=== PATIENT | female | born 1970 | race Caucasian/White ===

== ENCOUNTER → 2017-04-06 | Outpatient (CLI) | payer OTHER ==
[~2017-04-06] MED LIST: ACETAMINOPHEN325 MG PO; ALBUTEROL17 GM INH; AMOXICILLIN PO; ATIVAN PO; BACTRIM DS TABL1 TA1 PO; CALCIUM 500 +1 EAC5 PO; CIPRO PO; FLAGYL PO; FLEXERIL10 MG PO; HYDROCODON-ACE1 EAC9 PO; KLONOPIN PO; KLONOPIN1 MG PO; LORTAB 10-5001 EACH PO; LORTAB 5/500 TA1 TA1 PO; LORTAB 7.5-5001 TAB PO; MEDROL DOSEPAK4 MG PO; MEDROL PO; NO MEDICATIONS; NORFLEX100 M1 PO; PHENERGAN25 M1 DOB; PHENERGAN25 MG PO; PREDNISONE PO; ROBAXIN 750750 M1 DOB; SEROQUEL PO; SKELAXIN PO; SYNTHROID0.05 MG PO; TUMS500 MG; TUSSIONEX PENN473 ML PO; TYLOX1 CAP 5/50 PO; ULTRAM PO; VICODIN PO; Z-CLINZ 10 PAC1 EA PO; ZANAFLEX; ZANAFLEX PO; ZANTAC150 MG PO
--- NOTE | ~2017-04-06 | US128 ---
[id number] [facility] [address] [place], [place] [address] [id number] O MR#: [id number] [facility] #: [id number] NAME: MALLIKA LUU : 1970 SEX: F STUDY DATE/TIME: 04/06/2017 14:39 UNIT: CGUS ROOM: STUDY DESCRIPTION: Thyroid Attending Physician: Shima Reilly M.D. Referring Physician: Shima Reilly M.D. Ordering Physician: Shima Reilly M.D. Primary Care Physician: Shima Reilly M.D. MEDICAL IMAGING REPORT This report is preliminary unless electronic signature is present EXAM Thyroid ultrasound. COMPARISON April 02, 2016 INDICATIONS 47-year-old female with thyromegaly for 1 year. History of thyroid nodules. Follow up was requested. FINDINGS There is top normal size of the thyroid gland. Thyroid gland is diffusely heterogeneous. Inferior pole of the right lobe of the thyroid gland, there is heterogeneous, partly cystic, partly solid-appearing nodule measuring 2.4 cm x 1.5 cm x 1.8 cm. This previously measured 2.1 cm x 1.4 cm x 2.2 cm, but now has more of a solid appearance. Adjacent to this in the inferior pole of the right lobe of the thyroid gland, there is a heterogeneous nearly isoechoic nodule measuring 1.5 cm x 1.0 cm x 1.2 cm, stable allowing for differences in imaging technique in measurement. Today, the left lobe of the thyroid gland appears diffusely heterogeneous. No discrete nodule is measured. A hypoechoic nodule previously seen in the mid aspect of the left lobe of the thyroid gland may still be present and may be projecting deep to the thyroid gland with indistinct margins. This currently measures up to approximately 1 cm x 0.9 cm and may actually be underestimated in size due to the apparent infiltrative appearance. Separate left inferior pole nodule is still present, currently measuring 2.6 cm x 1.3 cm as much as 2 cm, likely not significantly changed from March of 2016. IMPRESSION 1. Nodule in the right lobe of thyroid gland with increasing solid component. This currently measures up to 2.4 cm and ultrasound-guided fine needle aspiration biopsy is recommended. 2. Although, not measured by the technologist, there is a hypoechoic deep nodule in the left lobe of the thyroid gland at the junction of the middle and inferior poles which is not well visualized on the current exam. This appears to have more indistinct margins, although, this cannot be stated definitively and this is not well seen on the provided images. Reevaluation of this nodule is recommended at the time of biopsy of the right lobe of the thyroid gland and if it has enlarged or become more infiltrative in appearance as the current images suggest then ultrasound-guided fine needle aspiration of this nodule in the left lobe of thyroid gland would also be recommended. 3. Other stable nodules can be safely followed provided that the recommended biopsy returns benign result. Dictated by... David Yang M.D. THIS IS AN ELECTRONICALLY VERIFIED REPORT David Yang M.D. at 04/12/2017 10:24 PM Renae TD: 04/07/2017 21:00 JOB #: [id number] MEDICAL IMAGING REPORT Page 1 of 1 COPY
== END | disposition home or self-care (01) ==
LOC: CGUS 14:16
DX: E04.2 Nontoxic multinodular goiter (principal)
CPT/HCPCS: 76536

== ENCOUNTER 2017-04-07 15:17 | Emergency (ER) | payer OTHER ==
[~2017-04-07 15:17] MED LIST changes: -ACETAMINOPHEN325 MG PO; -CALCIUM 500 +1 EAC5 PO; -FLEXERIL10 MG PO; -HYDROCODON-ACE1 EAC9 PO; -PHENERGAN25 MG PO; -SYNTHROID0.05 MG PO; -TUMS500 MG; -ZANTAC150 MG PO
[2017-05-27] MEDS ORDERED: FLEXERIL10 MG PO (10:04)
[2017-05-27] MEDS ORDERED: SEROQUEL PO (10:04)
[2017-05-27] MEDS ORDERED: HYDROCODON-ACE1 EAC9 PO (10:05)
[2017-05-27] MEDS ORDERED: ZANTAC150 MG PO (10:15)
[2017-05-27] MEDS ORDERED: TUMS500 MG (10:16)
[2017-06-04] MEDS ORDERED: CALCIUM 500 +1 EAC5 PO (12:14)
[2017-06-04] MEDS ORDERED: SYNTHROID0.05 MG PO (12:17)
[2017-06-04] MEDS ORDERED: ACETAMINOPHEN325 MG PO (12:19)
[2017-06-04] MEDS ORDERED: PHENERGAN25 MG PO (12:20)
== END 2017-04-07 16:25 | disposition home or self-care (01) ==
LOC: CFTX 15:17 → CED 15:17 → CFTX 16:21
DX: M54.6 Pain in thoracic spine (principal); M79.601 Pain in right arm; G89.29 Other chronic pain; F17.210 Nicotine dependence, cigarettes, uncomplicated; Z90.710 Acquired absence of both cervix and uterus; Z98.890 Other specified postprocedural states; Z79.899 Other long term (current) drug therapy
CPT/HCPCS: 99283

== ENCOUNTER → 2017-04-22 | Outpatient (CLI) | payer OTHER ==
[~2017-04-22] MED LIST changes: +ACETAMINOPHEN325 MG PO; +CALCIUM 500 +1 EAC5 PO; +FLEXERIL10 MG PO; +HYDROCODON-ACE1 EAC9 PO; +PHENERGAN25 MG PO; +SYNTHROID0.05 MG PO; +TUMS500 MG; +ZANTAC150 MG PO
--- NOTE | ~2017-04-22 | XA230 ---
[facility] A Service of [facility] RADIOLOGY TEXT RESULTS PATIENT: MALLIKA LUU LOCATION: [facility] : [birth year] UNIT #: [id number] AGE: [address]: ELIEL REILLY MD SEX: F ORDER DR: [id number] [facility] [address] [place], [place] [address] [id number] O MR#: [id number] Acc #: [id number] NAME: MALLIKA LUU : 1970 SEX: F STUDY DATE/TIME: 04/22/2017 10:37 UNIT: [facility] ROOM: STUDY DESCRIPTION: XA FNA Attending Physician: Eliel Reilly M.D. Referring Physician: Eliel Reilly M.D. Ordering Physician: Eliel Reilly M.D. Primary Care Physician: Eliel Reilly M.D. MEDICAL IMAGING REPORT This report is preliminary unless electronic signature is present EXAM Left thyroid FNA HISTORY Ms. Luu is a 47-year-old lady who had an ultrasound of the thyroid gland on 04/03/2016 which showed a heterogeneous nodule within the left lobe of the thyroid gland. She underwent left thyroid FNA of bilateral thyroid nodules. She had a follow-up ultrasound which showed a potential increase in the solid component of a right thyroid nodule measuring up to 2.4 cm. Repeat biopsy is recommended. There is also a concern for potential additional nodule deep to left thyroid lobe and re-examination of this area was also suggested. PROCEDURE The risks, benefits, and alternatives to the procedure were explained to the patient, and a signed, informed consent was obtained. Patient was placed supine on the angiographic table and was prepped and draped in usual sterile fashion. Ultrasound probe was covered with a sterile probe cover and sterile gel was applied. I did not see any definitive nodule posteriorly within the left lobe of the thyroid gland, a preexisting heterogeneous nodule within the right lobe of the thyroid gland was identified. Skin and subcutaneous tissues were assessed with buffered lidocaine and a total of 4 separate passes were made into this nodule under direct sterile sonographic guidance. The patient tolerated the procedure well. There were no immediate complications. microbiology technologist to confirm an adequate specimen had been obtained. IMPRESSION 1. Technically successful repeat FNA of the patient's right thyroid nodule. Ultrasound was used during the procedure and permanent images were saved 2. Prior ultrasound on April 06, 2017 questioned whether this patient had an additional nodule posteriorly within the left lobe of the STS. [facility] A Service of [facility] RADIOLOGY TEXT RESULTS PATIENT: MALLIKA LUU LOCATION: [facility] : [birth year] UNIT #: [id number] AGE: [address]: ELIEL REILLY MD SEX: F ORDER DR: thyroid gland. This was not marked by the abrasive mixer helper. I do not convincingly see this on today's examination and suggest continued sonographic follow up of all the patient's nodules. Dictated by... Gege Cr M.D. THIS IS AN ELECTRONICALLY VERIFIED REPORT Gege Cr M.D. at 04/23/2017 6:08 PM AFF/aa TD: 04/23/2017 10:49 JOB #: [id number] MEDICAL IMAGING REPORT Page 1 of 1 COPY
== END | disposition home or self-care (01) ==
LOC: CIVR 04-19 09:00
DX: E04.1 Nontoxic single thyroid nodule (principal)
CPT/HCPCS: 76942; 88173; 88305

== ENCOUNTER → 2017-04-23 | Outpatient (CLI) | payer OTHER ==
--- NOTE | ~2017-04-23 | MR176 ---
[facility] A Service of [facility] RADIOLOGY TEXT RESULTS PATIENT: MALLIKA LUU LOCATION: [facility] : 66 UNIT #: [id number] AGE: [address]: ELIEL REILLY MD SEX: F ORDER DR: [id number] [place], [place] [address] [id number] O MR#: [id number] Acc #: [id number] NAME: MALLIKA ULU : 1970 SEX: F STUDY DATE/TIME: 04/23/2017 7:04 UNIT: [facility] ROOM: STUDY DESCRIPTION: MR Thoracic Wo Contrast Attending Physician: Eliel Reilly M.D. Referring Physician: Eliel Reilly M.D. Ordering Physician: Eliel Reilly M.D. Primary Care Physician: Eliel Reilly M.D. MRI CENTER REPORT This report is preliminary unless electronic signature is present. EXAM MRI thoracic spine without contrast. INDICATION Mid-back pain and right arm pain and numbness since February 2017. PROCEDURE Sagittal T1 and T2-weighted, coronal T2-weighted, and axial T2-weighted imaging of the thoracic spine without contrast. COMPARISON None FINDINGS Thoracic cord has normal caliber and signal intensity. No abnormal marrow edema. Thoracic bodies have normal height. No abnormal paravertebral mass. No critical central canal or neural foraminal narrowing. IMPRESSION 1. No critical central canal neural foraminal narrowing in the thoracic spine. Thoracic cord has normal caliber and signal intensity. 2. No clearly acute findings. Dictated by... Scott Sheehan M.D. THIS IS AN ELECTRONICALLY VERIFIED REPORT Scott Sheehan M.D. at 04/27/2017 3:00 PM EED/tmw TD: 04/26/2017 09:43 [facility] A Service of [facility] RADIOLOGY TEXT RESULTS PATIENT: MALLIKA LUU [facility] : [birth year] UNIT #: [id number] AGE: [address]: ELIEL REILLY MD SEX: F ORDER DR: JOB #: [id number] MRI CENTER REPORT Page 1 of 1 COPY
== END | disposition home or self-care (01) ==
LOC: CMRI 04-13 16:00
DX: M47.24 Other spondylosis with radiculopathy, thoracic region (principal)
CPT/HCPCS: 72146

== ENCOUNTER → 2017-05-27 | Outpatient (CLI) | payer OTHER ==
--- NOTE | ~2017-05-27 | EKG ---
PATIENT: MALLIKA LUU UNIT #: [id number] Ventricular Rate: 77 BPM Atrial Rate: 77 BPM P-R Interval: 152 ms QRS Duration: 86 ms Q-T Interval: 390 ms QTC Calculation(Bezet): 441 ms P Ripton: 10 degrees Calculated R Ripton: 0 degrees Calculated T Ripton: 27 degrees Diagnosis Line: Normal sinus rhythm Diagnosis Line: Normal ECG Diagnosis Line: When compared with ECG of 27-JUL-2015 13:59, Diagnosis Line: Questionable change in QRS axis Diagnosis Line: Confirmed by BETH LUJAN MD ([id number]) on Diagnosis Line: 05/28/2017 10:52:11 AM INTERPRETING MD: TAI WELLS
[2017-05-27 10:31] LABS: BUN/CREATININE RATIO 10.9; CREATININE SERUM 1.1 mg/dL (0.6-1.4); GLOM FILT RATE Estimated 58.9 mL/min (>60)
== END | disposition home or self-care (01) ==
LOC: CAMB 09:30
PROVIDERS: Surgery
DX: Z01.818 Encounter for other preprocedural examination (principal)
CPT/HCPCS: 36415; 80048; 93005